=== PATIENT | female | born 1995 | race Two or more races ===

== ENCOUNTER 2017-05-15 00:35 | Emergency (ER) | payer MEDICAID ==
[~2017-05-15] VITALS: Ht 175.3 cm; Wt 63.5 kg
[2017-05-15 01:47] LABS: Basophils # (auto) 0 uL; Basophils % (auto) 0.1 % (0.0-2.0); CONDITION Y; Eosinophils # (auto) 0 uL; Eosinophils % (auto) 0.4 % (0.0-7.0); Hemoglobin 12.4 g/dL (12.2-16.2); Lymphocytes # (auto) 1.8 uL; Lymphocytes % (auto) 18.2 % (10.0-50.0); Mean Corpuscular Hemoglobin 30.6 pg (28.0-32.0); Mean Corpuscular Hgb Conc. 33.5 g/dL (32.0-36.0); Mean Corpuscular Volume 91.3 fL (80.0-100.0); Mean Platelet Volume 7.4 fL (7.4-10.4); Monocytes # (auto) 0.2 uL; Monocytes % (auto) 2.4 % (0.0-12.0); Neutrophils # (auto) 7.7 uL; Neutrophils % (auto) 78.9 % (37.0-80.0); Platelet Count (auto) 397 10^3/uL (140-450); White Blood Cell 9.7 10^3/uL (4.4-10.8)
[2017-05-15 01:55] LABS: Urine Bilirubin Negative (Negative); Urine Blood 1+ /uL (Negative); Urine Color Yellow (Yellow); Urine Glucose Normal (Normal); Urine Ketone 1+ (Negative); Urine Mucus FEW (None Seen); Urine Nitrite POSITIVE (Negative); Urine RBC 1 /hpf (0 - 4); Urine Squamous Epithelial Cell FEW /hpf (<5); Urine Urobilinogen Normal (Negative)
[2017-05-15 02:03] LABS: Partial Thromboplastin Time 24.5 sec (22.64-33.71); Prothrombin Time 10.9 sec (9.37-12.3)
[2017-05-15 02:06] LABS: Albumin 3.6 g/dL (3.4-5.0); BUN/Creatinine Ratio 16.9; Calcium 8.3 mg/dL (8.5-10.1); Potassium 3.8 mmol/L (3.5-5.1)
[2017-05-15 02:09] LABS: Bilirubin, Total 0.6 mg/dL (0.2-1.0); Total Protein 7.7 g/dL (6.4-8.2)
[2017-05-15 07:10] VITALS: BP 115/76
== END 2017-05-15 07:40 | disposition home or self-care (01) ==
LOC: ER 00:35
DX: N39.0 Urinary tract infection, site not specified (principal); K21.9 Gastro-esophageal reflux disease without esophagitis; J45.909 Unspecified asthma, uncomplicated
CPT/HCPCS: 36415; 80053; 81001; 81025; 82150; 83690; 85025; 85610; 85730